=== PATIENT | female | born 1965 | race Caucasian/White ===

== ENCOUNTER 2021-02-07 13:12 | Emergency (ER) | payer MEDICARE, MEDICAID ==
[~2021-02-07] VITALS: Ht 162.6 cm; Wt 65.9 kg
[2021-02-07 13:17] VITALS: BP 169/119
[2021-02-07] MEDS ORDERED: bacitracin 15gm ointment TP ONE (14:05)
[2021-02-07] MEDS ORDERED: TETanus/Pertussis (Acell)/Diphther VAC/PF (Tdap-Adult) 0.5ml syringe IMVAC ONE (14:05)
[2021-02-07] MEDS ORDERED: LIDOcaine 1% W/epiNEPHrine 1:200,000 10ml vial IJ ONE (14:05)
[2021-02-07] MEDS ORDERED: HYDROcodone/acetaminophen 10/325mg tab PO ONE (14:05)
[2021-02-07] MEDS ORDERED: HYDR-3965 PO (16:16)
== END 2021-02-07 16:34 | disposition home or self-care (01) ==
LOC: ER 13:13
DX: S61.412A Laceration without foreign body of left hand, initial encounter (principal); G89.29 Other chronic pain; M79.7 Fibromyalgia; F12.90 Cannabis use, unspecified, uncomplicated; Z90.49 Acquired absence of other specified parts of digestive tract; Z98.890 Other specified postprocedural states; Z79.899 Other long term (current) drug therapy; Z91.040 Latex allergy status; W45.8XXA Other foreign body or object entering through skin, initial encounter; Y93.89 Activity, other specified; Y92.89 Other specified places as the place of occurrence of the external cause; Y99.8 Other external cause status
CPT/HCPCS: 12002; 90471; 90715; 99283

== ENCOUNTER 2021-02-17 16:09 | Emergency (ER) | payer MEDICARE, MEDICAID ==
[~2021-02-17] VITALS: Ht 162.6 cm; Wt 65.9 kg
[~2021-02-17 16:09] MED LIST: HYDR-3965 PO
[2021-02-17 16:14] VITALS: BP 146/85
[2021-02-17] MEDS ORDERED: CEPH250T PO (17:07)
== END 2021-02-17 17:30 | disposition home or self-care (01) ==
LOC: ER 16:10
DX: S61.402A Unspecified open wound of left hand, initial encounter (principal); G89.29 Other chronic pain; M79.7 Fibromyalgia; F12.90 Cannabis use, unspecified, uncomplicated; Z90.49 Acquired absence of other specified parts of digestive tract; Z91.040 Latex allergy status; Z79.899 Other long term (current) drug therapy; X58.XXXA Exposure to other specified factors, initial encounter; Y93.89 Activity, other specified; Y92.89 Other specified places as the place of occurrence of the external cause; Y99.8 Other external cause status
CPT/HCPCS: 99283